=== PATIENT | female | born 1965 | race Caucasian/White ===

== ENCOUNTER → 2017-01-31 | Outpatient (CLI) | payer OTHER | LOC: BMCIMAGING 08:08 | PROVIDERS: ATTEND Physician Assistant | DX: Z12.31 Encounter for screening mammogram for malignant neoplasm of breast (principal) | CPT/HCPCS: G0202 ==

== ENCOUNTER → 2017-02-02 | Outpatient (CLI) | payer OTHER | LOC: BMCIMAGING 10:01 | PROVIDERS: ATTEND Physician Assistant | CPT/HCPCS: G0206 ==